=== PATIENT | male | born 1990 | race African-American/Black ===

== ENCOUNTER 2020-07-11 08:29 | Emergency (ER) | payer SELFPAY ==
[~2020-07-11] VITALS: Ht 170.2 cm; Wt 155.5 kg
[2020-07-11] MEDS ORDERED: ACET-683 PO (08:42)
[2020-07-11] MEDS ORDERED: IBUPROFEN 800 MG TAB PO ONE (09:00)
--- NOTE | 2020-07-11 09:35 | REPVR ---
PROCEDURE INFORMATION: Exam: XR Left Foot Complete Exam date and time: 07/11/2020 9:14 AM Age: 30 years old Clinical indication: Pain; Foot; Left; Patient HX: No trauma; Additional info: Left foot pain TECHNIQUE: Imaging protocol: XR Left foot. Views: 3 or more views. COMPARISON: No relevant prior studies available. FINDINGS: Bones/joints: Bone mineralization is normal. Bones are intact and the joint spaces are preserved. No acute fracture. No dislocation. Pes planus configuration of the midfoot. Soft tissues: Soft tissues are unremarkable. IMPRESSION: Pes planus configuration of the midfoot. No acute bony abnormality is identified. Electronically signed by: Dru Beaulieu On 07/11/2020 09:35:16 AM
[2020-07-11 09:52] VITALS: BP 142/80
== END 2020-07-11 10:37 | disposition home or self-care (01) ==
LOC: M ED 08:29
DX: S96.912A Strain of unspecified muscle and tendon at ankle and foot level, left foot, initial encounter (principal); M21.42 Flat foot [pes planus] (acquired), left foot; Y92.9 Unspecified place or not applicable; Y93.01 Activity, walking, marching and hiking; Y99.9 Unspecified external cause status